=== PATIENT | female | born 1965 | race American Indian/Alaskan Native ===

== ENCOUNTER 2017-03-26 20:05 | Inpatient (IN) | payer MEDICARE ==
[2017-03-26] MEDS ORDERED: PROVENTIL IH ONE (20:12)
[2017-03-26] MEDS ORDERED: LASIX IV ONE (20:12)
[2017-03-26] MEDS ORDERED: ATROVENT IH ONE (20:12)
[2017-03-26] MEDS ORDERED: LASIX ONE (20:13)
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
[2017-03-26 20:43] LABS: Basophils % (Auto) 0.9 % (0.0-1.8); Eosinophils % (Auto) 1.4 % (0.0-4.3); Mean Corpuscular HGB Conc 30 % (30-34); Mean Corpuscular Volume 79 fl (79-97); Platelet Count 207 K/mm3 (140-440); Red Blood Count 4.91 M/mm3 (3.65-5.03); Red Cell Distribution Width 17.9 % (13.2-15.2); White Blood Count 5.7 K/mm3 (4.5-11.0)
[2017-03-26 20:45] LABS: ISTAT Base Excess -4; ISTAT HCO3 23.3; ISTAT PCO2 51.4 (35-45); ISTAT PH 7.265 (7.35-7.45); ISTAT PO2 147 (80-105); ISTAT SO2 99; ISTAT TCO2 25
[2017-03-26 20:52] LABS: INR 0.86 (0.87-1.13)
[2017-03-26 20:53] LABS: Hematocrit 38.7 % (30.3-42.9); Hemoglobin 11.7 gm/dl (10.1-14.3); Mean Corpuscular Hemoglobin 24 pg (28-32); Partial Thromboplastin Time 26.4 Sec. (24.2-36.6)
[2017-03-26] MEDS ORDERED: TRIDIL DRIP 50MG/250ML 50 MG/250 ML BOTTLE IV SCH (21:00)
[2017-03-26 21:03] LABS: Albumin/Globulin Ratio 1.1 %; BUN/Creatinine Ratio 16.15; Bilirubin,Total 0.4 mg/dL (0.1-1.2); Calcium 8.8 mg/dL (8.4-10.2); Chloride 97.2 mmol/L (98-107); Total Protein 7.6 g/dL (6.3-8.2)
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
[2017-03-26 23:44] LABS: Bilirubin,Urine NEG (Negative); Blood,Urine MOD (Negative); Ketones,Urine NEG (Negative); Leukocyte Esterase,Urine NEG (Negative); Mucus,Urine FEW /HPF; Nitrite,Urine NEG (Negative); Urobilinogen,Urine < 2.0 mg/dL (<2.0)
[2017-03-27] MEDS: CARDENE 50 MG in NACL 0.9% 250ML 230 ML IV SCH ×2 (00:15→05:10)
[2017-03-27] MEDS: ZOSYN/NS 3.375GM/50ML 3.375 GM/50 ML BAG IV SCH ×2 (00:27→05:59)
[2017-03-27] MEDS ORDERED: MILK OF MAGNESIA PO PRN (00:46)
[2017-03-27] MEDS ORDERED: ZOFRAN IV PRN (00:46)
[2017-03-27] MEDS ORDERED: DULCOLAX PR PRN (00:46)
[2017-03-27] MEDS ORDERED: TYLENOL PO PRN (00:46)
[2017-03-27] MEDS ORDERED: DUONEB *Not for PRN Use IH SCH (02:00)
[2017-03-27 04:47] LABS: Creatine Kinase MB 5.7 ng/mL (0.0-4.0)
[2017-03-27 06:51] LABS: Creatine Kinase MB 6.2 ng/mL (0.0-4.0)
[2017-03-27 07:07] VITALS: BP 161/84
--- NOTE | 2017-03-27 07:41 | XRay Report ---
AP CHEST: HISTORY: Dyspnea AP view of the chest demonstrates a normal mediastinal and cardiac contour with clear lungs and normal bony and soft tissue structures. IMPRESSION: Unremarkable AP chest.
--- NOTE | 2017-03-27 09:20 | Event Note ---
Date: 03/27/17 patient left AMA, did not get to see the patient. please refer to Dr. Dinh for discharge summary.
[2017-03-27] MEDS ORDERED: LOVENOX SUB-Q SCH ×2 (10:00)
--- NOTE | 2017-03-27 10:41 | Admit Criteria Form ---
Admission Criteria Documentation: RESPIRATORY FAILURE GRG Clinical Indications for Admission to Inpatient Care (Place 'X' for any and all applicable criteria): Hospital admission is needed for appropriate care of the patient because of acute respiratory failure or insufficiency as indicated by 1 or more of the following (1)(2)(3)(4)(5)(6)(7)(8 ): [X ]I. Mechanical ventilation needed (acute invasive or noninvasive) [X ]II. Severe ventilation deficit as indicated by 1 or more of the following (9) [X ]a) Uncompensated Respiratory acidosis (pH < 7.35 and PaCO2 > 40 mmHg (5.3 kPa)) [ ]b) Airflow measurements < 25% of predicted (eg, PEFR < 100 L/min) [ ]c) FVC < 15 mL/kg of ideal body weight, or 50% decrease in vital capacity from baseline [ ]III. Noncardiac pulmonary edema not resolving with rapid emergency treatment (8) [ ]IV. Severe respiratory distress as indicated by 1 or more of the following: [ ]a) Severe tachypnea (respiratory rate greater than 30, greater than 45 for 6-month-old, greater than 60 for ) [ ]b) Severe hypoxemia (partial pressure of oxygen less than 50 mm Hg ( 6.7 kPa) on greater than 50% oxygen or partial pressure of oxygen to FIO2 ratio less than 200) [ ]c) Mental status deterioration from respiratory disease [ ]V. Airway obstruction or inadequate protection [A](10)(11) The original [employer] content created by [employer] has been revised. The portions of the content which have been revised are identified through the use of italic text or in bold, and [employer] has neither reviewed nor approved the modified material. All other unmodified content is copyright [employer]. Please see references footnoted in the original [employer] edition 2017 Admission Criteria Met: Yes
--- NOTE | 2017-03-28 09:59 | Discharge Summary ---
Discharge against medical advice 03/27/2017. DISCHARGE DIAGNOSES: 1. Acute respiratory distress. 2. Hypertension, malignant. 3. Flash pulmonary edema. HISTORY OF PRESENT ILLNESS: A 51-year-old woman with a history of hypertension, sarcoidosis was brought to the Emergency Room with acute onset of shortness of breath. She was extremely hypertensive and had flash pulmonary edema. The patient was given IV Lasix and started on BiPAP and Cardene drip. The patient signed out against medical advice. Please refer to the H and P for details. JOB# [id number] AES/NTS MTDD
== END 2017-03-27 06:50 | disposition left against medical advice (07) | DRG 189 ==
LOC: ED 20:05 → CC1 03-27 00:47
PROVIDERS: ADMIT Internal Medicine; ATTEND Internal Medicine
PROC: 5A09357 Assistance with Respiratory Ventilation, Less than 24 Consecutive Hours, Continuous Positive Airway Pressure (ICD-10-PCS; principal; 2017-03-26)
PROC: 4A033R1 Measurement of Arterial Saturation, Peripheral, Percutaneous Approach (ICD-10-PCS; 2017-03-26)
DX: J96.00 Acute respiratory failure, unspecified whether with hypoxia or hypercapnia (principal); J81.1 Chronic pulmonary edema; I16.1 Hypertensive emergency; I10 Essential (primary) hypertension; E89.0 Postprocedural hypothyroidism; Z82.49 Family history of ischemic heart disease and other diseases of the circulatory system; D86.9 Sarcoidosis, unspecified
CPT/HCPCS: 36415; 71010; 80053; 80061; 81001; 82140; 82550; 82553; 82803; 83880; 84484; 85025; 85610; 85730; 87040; 93005; 93010; 94640; 96374; 96375; J1940; J2543; J2930; J7050